=== PATIENT | female | born 1965 | race African-American/Black ===

== ENCOUNTER 2024-02-28 12:21 | Emergency (ER) | payer MEDICAID ==
[~2024-02-28] VITALS: Ht 165.1 cm; Wt 50.0 kg
[~2024-02-28 12:21] MED LIST: ALBUTEROL; ATENOLOL; GABAPENTIN
[2024-02-28 12:22] VITALS: O2SAT 97
[2024-02-28] MEDS: ONDANSETRON HCL 4MG/2ML INJ IV STA (13:20)
[2024-02-28] MEDS: MORPHINE SULFATE 4 MG/ML INJ (FOR IV/IM USE) IV STA (13:23)
[2024-02-28 13:24] LABS: BASOPHILS % 0.1 % (0.0-2.0); EOSINOPHILS % 0.1 % (0.0-5.0); HEMATOCRIT. 44.3 % (36.0-48.0); HEMOGLOBIN. 14.9 g/dL (12.0-16.0); LYMPHOCYTES % 7.5 % (20.0-50.0); MEAN CORPUSCULAR HGB CONC 33.6 g/dL (31.0-37.0); MEAN CORPUSCULAR VOLUME 89.3 fL (81.0-99.0); MEAN PLATELET VOLUME 7.9 fl (7.4-10.4); MONOCYTES % 3.4 % (2.0-8.0); NEUTROPHILS % 88.9 % (40.0-76.0); PLATELET 209 x1000/uL (130-400); RED BLOOD CELL COUNT 4.96 mill/uL (4.2-5.4); RED CELL DISTRIBUTION WIDTH 15.2 % (11.6-14.6); WHITE BLOOD COUNT 8.4 x1000/uL (4.5-11.0)
[2024-02-28] MEDS: SODIUM CHLORIDE 0.9% 1,000 ML IV ONE (13:27)
[2024-02-28 13:35] LABS: CHLORIDE 108 mEq/L (98-107); POTASSIUM 3.5 mEq/L (3.5-5.1); SODIUM 140 mEq/L (136-145)
[2024-02-28 13:36] LABS: CALCIUM 9.6 mg/dL (8.7-10.4); CARBON DIOXIDE 26 mEq/L (21-32); PROTHROMBIN TIME 11.4 sec (9.6-11.0)
[2024-02-28 13:41] LABS: CREATININE 0.8 mg/dL (0.6-1.0); GLUCOSE 124 mg/dL (70-105); UREA NITROGEN BLOOD 6 mg/dL (9-23)
[2024-02-28 13:43] LABS: ALANINE AMINOTRANSFERASE 14 IU/L (10-49); ASPARTATE AMINOTRANSFERASE 20 IU/L (<34); BILIRUBIN DIRECT 0.3 mg/dL (<=3.0)
[2024-02-28 13:44] LABS: BILIRUBIN TOTAL 0.7 mg/dL (0.1-1.0)
[2024-02-28 13:52] LABS: TROPONIN I HIGH SENSITIVITY < 4 ng/L (3.0-34)
[2024-02-28] MEDS: ONDANSETRON HCL 4MG/2ML INJ IV ONE ×2 (15:54→18:19)
[2024-02-28] MEDS: MORPHINE SULFATE 4 MG/ML INJ (FOR IV/IM USE) IV ONE ×2 (15:55→17:35)
[2024-02-28] MEDS: IOHEXOL-350 100 ML BOTTLE ONE (16:19)
[2024-02-28 18:02] LABS: CLARITY URINE CLEAR (CLEAR); COLOR URINE YELLOW (YELLOW); GLUCOSE URINE NEGATIVE (NEGATIVE); KETONES URINE 1+ (NEGATIVE); LEUKOCYTE ESTERASE URINE NEGATIVE (NEGATIVE); NITRITE URINE NEGATIVE (NEGATIVE); OCCULT BLOOD URINE NEGATIVE (NEGATIVE); PROTEIN URINE TRACE (NEGATIVE); SPECIFIC GRAVITY URINE 1.071 (1.005-1.030)
[2024-02-28 18:13] VITALS: BP 135/85; PULSE 90; RESP 16; TEMP 99
[2024-02-28 18:24] LABS: BACTERIA URINE TRACE; RBC URINE 0-2 /hpf (0-2); SQUAMOUS EPITHELIAL CELL URINE FEW /lpf (RARE/1+)
[2024-02-28] MEDS ORDERED: IOHEXOL-350 100 ML BOTTLE ONE (22:45)
== END 2024-02-28 18:51 | disposition short-term general hospital (02) ==
LOC: ER 13:04 → 5WST 16:33 → UNDOADMIN 16:33 → EDBEDREQ 16:39 → EDBEDREQTM 16:39 → UNDODISIN 18:26
DX: K85.90 Acute pancreatitis without necrosis or infection, unspecified (principal); R07.89 Other chest pain; I25.2 Old myocardial infarction; Z98.890 Other specified postprocedural states
CPT/HCPCS: 80076; 80048; 81003; 80320; 83880; 83690; 85025; 85610; 84484; 36415; 74174; 71045; 71275; 93005; 96361; 96374; 96375; 96376; 99285; Q9967; J2405; J2270; J7030; Z7610 ×4; G0480

== ENCOUNTER 2024-09-15 16:49 | Emergency (ER) | payer MEDICAID ==
[~2024-09-15] VITALS: Ht 165.1 cm; Wt 65.0 kg
[2024-09-15 16:52] VITALS: TEMP 99; O2SAT 96
[2024-09-15 17:33] LABS: BASOPHILS % 0.2 % (0.0-2.0); DIFFERENTIAL COMMENT 0; EOSINOPHILS % 0.2 % (0.0-5.0); HEMATOCRIT. 51.2 % (36.0-48.0); LYMPHOCYTES % 16.8 % (20.0-50.0); MEAN CORPUSCULAR HEMOGLOBIN 29.4 pg (28.0-32.0); MEAN CORPUSCULAR HGB CONC 31.2 g/dL (31.0-37.0); MEAN CORPUSCULAR VOLUME 94.4 fL (81.0-99.0); MEAN PLATELET VOLUME 7.7 fl (7.4-10.4); MONOCYTES % 5.9 % (2.0-8.0); NEUTROPHILS % 76.9 % (40.0-76.0); PLATELET 231 x1000/uL (130-400); RED BLOOD CELL COUNT 5.43 mill/uL (4.2-5.4); RED CELL DISTRIBUTION WIDTH 16.3 % (11.6-14.6); WHITE BLOOD COUNT 8.9 x1000/uL (4.5-11.0)
[2024-09-15 17:46] LABS: CHLORIDE 106 mEq/L (98-107); SODIUM 139 mEq/L (136-145)
[2024-09-15 17:47] LABS: CALCIUM 10.4 mg/dL (8.7-10.4); CARBON DIOXIDE 21 mEq/L (21-32)
[2024-09-15 17:52] LABS: CREATININE 1.1 mg/dL (0.6-1.0); GLUCOSE 116 mg/dL (70-105); UREA NITROGEN BLOOD 10 mg/dL (9-23)
[2024-09-15 19:58] LABS: CLARITY URINE CLEAR (CLEAR); COLOR URINE DARK YELLOW (YELLOW); GLUCOSE URINE NEGATIVE (NEGATIVE); KETONES URINE 3+ (NEGATIVE); LEUKOCYTE ESTERASE URINE NEGATIVE (NEGATIVE); NITRITE URINE NEGATIVE (NEGATIVE); OCCULT BLOOD URINE NEGATIVE (NEGATIVE); PH URINE 5.5 (4.5-8.0); PROTEIN URINE 2+ (NEGATIVE); SPECIFIC GRAVITY URINE 1.029 (1.005-1.030)
[2024-09-15] MEDS ORDERED: MORPHINE SULFATE 4 MG/ML INJ (FOR IV/IM USE) IV STA (20:05)
[2024-09-15] MEDS ORDERED: ONDANSETRON HCL 4MG/2ML INJ IV STA (20:05)
[2024-09-15 20:14] LABS: RBC URINE NONE SEEN /hpf (0-2)
[2024-09-15 20:15] LABS: BACTERIA URINE 1+; SQUAMOUS EPITHELIAL CELL URINE 1+ /lpf (RARE/1+)
[2024-09-15 20:22] LABS: ALANINE AMINOTRANSFERASE 15 IU/L (10-49); ALBUMIN 5.4 g/dL (3.2-4.8); ASPARTATE AMINOTRANSFERASE 23 IU/L (<34); BILIRUBIN DIRECT 0.2 mg/dL (<=3.0)
[2024-09-15 20:23] LABS: BILIRUBIN TOTAL 0.7 mg/dL (0.1-1.0); PROTEIN TOTAL 9.4 g/dL (6.0-8.3)
[2024-09-15 20:25] LABS: TROPONIN I HIGH SENSITIVITY < 4 ng/L (3.0-34)
[2024-09-15 21:21] LABS: BASOPHILS % 0.3 % (0.0-2.0); HEMATOCRIT. 45.7 % (36.0-48.0); HEMOGLOBIN. 15.3 g/dL (12.0-16.0); LYMPHOCYTES % 12.3 % (20.0-50.0); MEAN CORPUSCULAR HEMOGLOBIN 30.5 pg (28.0-32.0); MEAN CORPUSCULAR HGB CONC 33.5 g/dL (31.0-37.0); MEAN CORPUSCULAR VOLUME 91.1 fL (81.0-99.0); MEAN PLATELET VOLUME 7.8 fl (7.4-10.4); MONOCYTES % 4.8 % (2.0-8.0); NEUTROPHILS % 82.6 % (40.0-76.0); PLATELET 287 x1000/uL (130-400); RED BLOOD CELL COUNT 5.02 mill/uL (4.2-5.4); RED CELL DISTRIBUTION WIDTH 15.8 % (11.6-14.6)
[2024-09-15 21:33] LABS: PARTIAL THROMBOPLASTIN TIME 31.9 sec (23.4-31.0); PROTHROMBIN TIME 11.5 sec (9.6-11.0)
[2024-09-15] MEDS: SODIUM CHLORIDE 0.9% 1,000 ML IV ONE (21:56)
[2024-09-15] MEDS: ONDANSETRON HCL 4MG/2ML INJ IV NR (22:19)
[2024-09-15] MEDS: MORPHINE SULFATE 4 MG/ML INJ (FOR IV/IM USE) IV NR (22:19)
[2024-09-15] MEDS ORDERED: NITR-87 MT (22:35)
[2024-09-15] MEDS ORDERED: KETOROLAC 15MG/ML VIAL IV ONE (22:45)
[2024-09-15] MEDS ORDERED: ONDANSETRON HCL 4MG/2ML INJ IV ONE (22:45)
[2024-09-16] MEDS ORDERED: KETOROLAC 30MG/ML VIAL IM NR (00:45)
[2024-09-16] MEDS ORDERED: ONDANSETRON 4MG ODT PO NR (00:45)
[2024-09-16 00:50] VITALS: BP 160/92; PULSE 101; RESP 16
[2024-09-16] MEDS: ONDANSETRON 4MG ODT PO ONE (00:50)
[2024-09-16] MEDS: KETOROLAC 30MG/ML VIAL IM ONE (00:50)
== END 2024-09-16 00:54 | disposition home or self-care (01) ==
LOC: ER 16:49 → CANBEDREQ 23:37 → ER 09-16 00:54
DX: N39.0 Urinary tract infection, site not specified (principal); R10.13 Epigastric pain; J45.909 Unspecified asthma, uncomplicated; I25.2 Old myocardial infarction; I25.10 Atherosclerotic heart disease of native coronary artery without angina pectoris; Z87.19 Personal history of other diseases of the digestive system; Z88.0 Allergy status to penicillin
CPT/HCPCS: 80076; 80048; 81003; 83690; 85025; 85610; 85730; 84484; 36415; 71045; 74176; 93005; 96361; 96374; 96375; 99285; 96372; J2405; J2270; J7030; Z7610 ×4; Q0162; J1885